=== PATIENT | female | born 1995 | race Caucasian/White ===

== ENCOUNTER 2016-12-05 12:39 | Emergency (ER) | payer OTHER ==
[2016-12-05 12:52] VITALS: BP 128/67
--- NOTE | 2016-12-05 13:57 | UC ---
Respiratory Complaint HPI - HPI Summary HPI Summary: 21 yo female ill for about 4 days with cough (productive of green phlegm), wheezing and diarrhea 3-4 episodes/day no n/v - History of Current Complaint Chief Complaint: UCRespiratory Stated Complaint: CHEST CONGESTION, COUGH Time Seen by Provider: 12/05/16 13:39 Hx Obtained From: Patient Hx Last Menstrual Period: 10/08/16-states having PCOS and menses are irreg. Onset/Duration: Gradual Onset, Lasting Days Severity Initially: Moderate Severity Currently: Mild Pain Intensity: 2 Pain Scale Used: 0-10 Numeric Character: Cough: Productive Aggravating Factors: Deep Breaths Associated Signs And Symptoms: Positive: Wheezing Related History: Similar Episode/Dx as: - bronchitis - Allergies/Home Medications Allergies/Adverse Reactions: Allergies Allergy/AdvReac Type Severity Reaction Status Date / Time No Known Allergies Allergy Verified 12/05/16 12:52 Home Medications: Home Medications ALPRAZolam TAB* [Xanax TAB*] 0.5 mg PO TID PRN 12/05/16 [History Confirmed 12/05] Xvkfvxw-Rxvedhraqbzrp-Cyraakhg [Excedrin Extra Strength] 2 tab PO PRN 12/05/16 [ History] Bupropion HCl [Wellbutrin Sr] 150 mg PO BID 12/05/16 [History Confirmed 12/05/16 ] PMH/Surg Hx/FS Hx/Imm Hx Previously Healthy: Yes Respiratory History: Bronchitis - Surgical History Surgical History: Yes Surgery Procedure, Year, and Place: RIGHT HAND SURGERY FOR NERVE REPAIR, [facility] x 2. T & A 04/21 - Family History Known Family History: Positive: Hypertension - Social History Alcohol Use: Weekly Substance Use Type: None Smoking Status (MU): Light Every Day Tobacco Smoker Type: Cigarettes Amount Used/How Often: 1/2 PACK A DAY Length of Time of Smoking/Using Tobacco: age 13 Have You Smoked in the Last Year: Yes - Immunization History Most Recent Tetanus Shot: 2008 Review of Systems Constitutional: Negative Skin: Negative Eyes: Negative ENT: Negative Respiratory: Cough Cardiovascular: Negative Gastrointestinal: Negative Genitourinary: Negative Motor: Negative Neurovascular: Negative Musculoskeletal: Negative Neurological: Negative Psychological: Negative Is Patient Immunocompromised?: No All Other Systems Reviewed And Are Negative: Yes Physical Exam Triage Information Reviewed: Yes Appearance: Well-Appearing, No Pain Distress, Well-Nourished Vital Signs: Initial Vital Signs Temp 97.2 F 12/05/16 12:45 Pulse 65 12/05/16 12:45 Resp 16 12/05/16 12:45 BP 128/67 12/05/16 12:45 Pulse Ox 100 12/05/16 12:45 Vital Signs Reviewed: Yes Eyes: Positive: Conjunctiva Clear ENT: Positive: Hearing grossly normal, TMs normal. Negative: Nasal congestion, Nasal drainage, Tonsillar swelling, Tonsillar exudate, Trismus, Muffled/hoarse voice Neck: Positive: Supple, Nontender, No Lymphadenopathy Respiratory: Positive: No respiratory distress, No accessory muscle use, Wheezing - with forced expiration Cardiovascular: Positive: RRR, No Murmur Musculoskeletal: Positive: ROM Intact, No Edema Neurological: Positive: Alert Skin Exam: Normal UC Diagnostic Evaluation - Laboratory O2 Sat by Pulse Oximetry: 100 - normal/not hypoxic Respiratory Course/Dx - Differential Dx/Diagnosis Provider Diagnoses: acute bronchitis with bronchospasm Discharge - Discharge Plan Condition: Stable Disposition: HOME Prescriptions: Albuterol HFA INHALER* [Ventolin HFA Inhaler*] 2 puff INH QID #1 mdi Azithromycin TAB* [Zithromax TAB*] 250 mg PO DAILY #6 tab Fluconazole 150 MG (NF) [Diflucan 150 mg (NF)] 150 mg PO ONCE #1 tab Prednisone [Deltasone] 40 mg PO DAILY #10 tab Patient Education Materials: Acute Bronchitis (ED) Forms: *Work Release Referrals: MALENA Wood [Primary Care Provider] - 4 Days (if not better) Additional Instructions: rest fluids recheck for new or worsening symptoms
== END 2016-12-05 13:59 | disposition home or self-care (01) ==
LOC: UCCORT 12:39
DX: J20.9 Acute bronchitis, unspecified (principal); F17.210 Nicotine dependence, cigarettes, uncomplicated
CPT/HCPCS: 99212; G0463

== ENCOUNTER 2017-02-13 08:51 | Emergency (ER) | payer OTHER ==
[2017-02-13 09:03] VITALS: BP 128/74
--- NOTE | 2017-02-13 10:03 | UC ---
Lower Extremity/Ankle HPI - HPI Summary HPI Summary: Pt c/o sudden onset of right foot pain, dorsal, lateral aspect. Denies injury or trauma. Pt reports she began high impact exercise 5 days ago and foot began to worsen in pain since beginning exercise. - History of Current Complaint Chief Complaint: UCLowerExtremity Stated Complaint: RT FOOT PAIN Time Seen by Provider: 02/13/17 09:15 Hx Obtained From: Patient Hx Last Menstrual Period: 01/24/17 ?: No Onset/Duration: Gradual Onset, Lasting Days, Still Present, Worse Since - onset Severity Initially: Mild Severity Currently: Moderate Pain Intensity: 7 Pain Scale Used: 0-10 Numeric Aggravating Factor(s): Standing, Ambulation Alleviating Factor(s): Rest Able to Bear Weight: Yes - minimum - Risk Factors Gout Risk Factors: Diabetes DVT Risk Factors: Negative Septic Arthritis Risk Factor: Negative - Allergies/Home Medications Allergies/Adverse Reactions: Allergies Allergy/AdvReac Type Severity Reaction Status Date / Time No Known Allergies Allergy Verified 02/13/17 09:03 Home Medications: Home Medications metFORMIN* [Glucophage 500 MG TAB *] 500 mg PO BID 02/13/17 [History Confirmed 02/13/17] PMH/Surg Hx/FS Hx/Imm Hx Previously Healthy: Yes - PCOS? Endocrine History: Diabetes - Surgical History Surgical History: Yes Surgery Procedure, Year, and Place: RIGHT HAND SURGERY FOR NERVE REPAIR, [facility] x 2. T & A 04/21 - Family History Known Family History: Positive: Hypertension - Social History Occupation: Employed Full-time Lives: With Family Alcohol Use: Rare Substance Use Type: None Smoking Status (MU): Former Smoker Type: Cigarettes Amount Used/How Often: 1/2 PACK A DAY Length of Time of Smoking/Using Tobacco: age 13 Have You Smoked in the Last Year: Yes - Immunization History Most Recent Tetanus Shot: 2008 Vaccination Up to Date: No Review of Systems Constitutional: Negative Skin: Negative Eyes: Negative ENT: Negative Respiratory: Negative Cardiovascular: Negative Gastrointestinal: Negative Genitourinary: Negative Motor: Decreased ROM - right foot Neurovascular: Negative Musculoskeletal: Arthralgia, Decreased ROM - right foot, Myalgia Neurological: Negative Psychological: Negative Is Patient Immunocompromised?: No All Other Systems Reviewed And Are Negative: Yes Physical Exam Triage Information Reviewed: Yes Appearance: Well-Appearing Vital Signs: Initial Vital Signs Temp 97.8 F 02/13/17 08:58 Pulse 68 02/13/17 08:58 Resp 16 02/13/17 08:58 BP 128/74 02/13/17 08:58 Pulse Ox 100 02/13/17 08:58 Vital Signs Reviewed: Yes Eye Exam: Normal ENT Exam: Normal Dental Exam: Normal Neck exam: Normal Respiratory Exam: Normal Cardiovascular Exam: Normal Musculoskeletal: Positive: Strength Limited @ - right foot, ROM Limited @, Other : - point tendereness mid right 5th metatarsal Neurological Exam: Other Psychological Exam: Normal Skin Exam: Normal Lower Extremity Course/Dx - Differential Dx/Diagnosis Differential Diagnosis/HQI/PQRI: Contusion, Fracture (Closed), Sprain, Strain Provider Diagnoses: tendonitis right foot. stress fracture? Discharge - Discharge Plan Condition: Stable Disposition: HOME Prescriptions: Ibuprofen TAB* [Motrin TAB* 800 MG] 800 mg PO Q8H PRN #21 tab PRN Reason: Pain Patient Education Materials: Tendinitis (ED), RICE Therapy (ED) Referrals: MALENA Wood [Primary Care Provider] - If Needed Enio Loya MD [Medical Doctor] - If Needed
== END 2017-02-13 09:44 | disposition home or self-care (01) ==
LOC: UCCORT 08:51
DX: M77.51 Other enthesopathy of right foot and ankle (principal); Z87.891 Personal history of nicotine dependence
CPT/HCPCS: 99213; G0463

== ENCOUNTER 2017-04-23 11:43 | Emergency (ER) | payer OTHER ==
--- NOTE | 2017-04-23 12:52 | UC ---
Complaint Female HPI - HPI Summary HPI Summary: Gastric bypass at [facility] 04/04/17 dx with UTI 5 days ago and has been on Bactrim that has resolved---this morning got right upper quadrant and right back back with vomiting after eating a cheese stick- - History Of Current Complaint Chief Complaint: UCAbdominalPain Stated Complaint: URINARY W/BACK PAIN Time Seen by Provider: 04/23/17 12:50 Hx Obtained From: Patient Hx Last Menstrual Period: now 04/23/17 ?: No Onset/Duration: Sudden Onset Timing: Constant Severity Initially: Severe Severity Currently: Severe Pain Intensity: 10 Pain Scale Used: 0-10 Numeric Character: Colicy Aggravating Factor(s): Nothing Alleviating Factor(s): Nothing Associated Signs And Symptoms: Positive: Back Pain, Nausea, Vomiting(# Of Episodes =) - 1 episode this morning - Allergies/Home Medications Allergies/Adverse Reactions: Allergies Allergy/AdvReac Type Severity Reaction Status Date / Time No Known Allergies Allergy Verified 04/23/17 13:16 Home Medications: Home Medications Aspirin/Acetaminophen/Caffeine [Excedrin Migraine Caplet] 1 each PO 04/23/17 [ History] Citalopram TAB* [CeleXA TAB*] 10 mg PO DAILY 04/23/17 [History Confirmed ] Fluconazole [Fluconazole 200 mg tab] 200 mg PO 04/23/17 [History] Omeprazole 20 mg PO DAILY 04/23/17 [History Confirmed 04/23/17] Ondansetron ODT TAB* [Zofran 4 MG Odt TAB*] 8 mg PO Q8H PRN 04/23/17 [History Confirmed 04/23/17] Sulfamethox/Trimethoprim DS* [Bactrim DS 800/160 TAB*] 1 tab PO BID 04/23/17 [ History Confirmed 04/23/17] buPROPion HCl [Wellbutrin Sr] 100 mg PO BID 04/23/17 [History Confirmed 04/23/17 ] PMH/Surg Hx/FS Hx/Imm Hx Previously Healthy: No GI/ History: Gastroesophageal Reflux Psychological History: Depression - Surgical History Surgical History: Yes Surgery Procedure, Year, and Place: RIGHT HAND SURGERY FOR NERVE REPAIR, [facility] x 2. T & A 04/21 - Family History Known Family History: Positive: Hypertension - Social History Occupation: Employed Full-time Lives: Alone Alcohol Use: Rare Substance Use Type: None Smoking Status (MU): Former Smoker Type: Cigarettes Amount Used/How Often: 1/2 PACK A DAY Length of Time of Smoking/Using Tobacco: age 13 Have You Smoked in the Last Year: Yes - Immunization History Most Recent Tetanus Shot: 2008 Vaccination Up to Date: No Review of Systems Constitutional: Negative Skin: Negative Eyes: Negative ENT: Negative Respiratory: Negative Cardiovascular: Negative Gastrointestinal: Abdominal Pain - ruq, Vomiting, Nausea Genitourinary: Negative Motor: Negative Neurovascular: Negative Musculoskeletal: Negative Neurological: Negative Psychological: Negative Is Patient Immunocompromised?: No All Other Systems Reviewed And Are Negative: Yes Physical Exam Triage Information Reviewed: Yes Appearance: Well-Nourished, Ill-Appearing, Pain Distress Vital Signs Reviewed: Yes Eye Exam: Normal Eyes: Positive: Conjunctiva Clear ENT Exam: Normal ENT: Positive: Normal ENT inspection, Hearing grossly normal. Negative: Nasal congestion, Nasal drainage, Trismus, Hoarse voice, Dental tenderness, Sinus tenderness Dental Exam: Normal Neck exam: Normal Neck: Positive: Supple, Nontender Respiratory Exam: Normal Respiratory: Positive: Chest non-tender, No respiratory distress, No accessory muscle use Cardiovascular Exam: Normal Cardiovascular: Positive: RRR, Pulses Normal, Brisk Capillary Refill Abdominal Exam: Normal Abdomen Description: Positive: Soft, Other: - RUQ pain. Negative: No Organomegaly, CVA Tenderness (R), CVA Tenderness (L), Distended Bowel Sounds: Positive: Present Musculoskeletal Exam: Normal Musculoskeletal: Positive: Strength Intact, ROM Intact, No Edema Neurological Exam: Normal Neurological: Positive: Alert, Muscle Tone Normal Psychological Exam: Normal Skin Exam: Normal Diagnostics - Laboratory Diagnostic Studies Completed/Ordered: ua--+ketones and Bili--no leukoesterace or nit. Complaint Female Dx - Course Course Of Treatment: npo to [facility] with ex-boyfriend driving for evaluation of abdomen pain - Differential Dx/Diagnosis Provider Diagnoses: Acute abdomen pain s/p [id number] Discharge - Discharge Plan Condition: Fair Disposition: OTHER Discharge Disposition Comment: to [facility] for evaluation of abdomen pain Patient Education Materials: Acute Abdominal Pain (ED) Referrals: MALENA Wood [Primary Care Provider] - Additional Instructions: We are discharging you from the urgent care to go directly to the hospital for further evaluation of abdomen pain and vomiting---
[2017-04-23 13:27] VITALS: BP 124/66
== END 2017-04-23 13:50 ==
LOC: UCCORT 11:43
DX: R10.11 Right upper quadrant pain (principal); Z98.84 Bariatric surgery status; Z87.891 Personal history of nicotine dependence; F32.9 Major depressive disorder, single episode, unspecified; K21.9 Gastro-esophageal reflux disease without esophagitis
CPT/HCPCS: 81003; 99212; G0463

== ENCOUNTER 2018-09-15 09:01 | Day surgery (SDC) | payer OTHER ==
--- NOTE | 2018-09-06 17:01 | HP ---
PREOPERATIVE HISTORY AND PHYSICAL: DATE OF SURGERY/ADMISSION: 09/15/18 [facility] DATE OF OFFICE VISIT/ENCOUNTER: 09/06/18 ATTENDING SURGEON: Yuliana Beauchamp MD.* (DICTATED BY UTE JIMENEZ) PROCEDURE: Right hand median nerve exploration, nerve wrap, scar lengthening. HISTORY OF PRESENT ILLNESS: This is a 22-year-old female who has history of injury to her right hand back in 2013, for which she was treated by Dr. Beauchamp. At that time, she sustained a laceration to the palm of her hand, around the thenar eminence, and ended up developing a Dupuytren's contracture that involved her thumb. She had surgery to remove the Dupuytren's contracture and to disentangle a digital nerve that was found to be intact. The patient reports that since the initial injury she has had trouble with numbness and tingling in her hand, primarily effecting the thumb, index, and middle fingers. She does not feel numbness in the pinky or ring finger. She has noticed over the time that although she healed well from the surgery, she has had persistent numbness and also has noticed some strength deficit in the hand. She reports that the weather and using her hand make the symptoms worse. She had a nerve conduction study more recently, ordered by Dr. 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 Dr. Beauchamp is recommending surgical intervention at this time in the form of a median nerve exploration, nerve wrapping, and scar lengthening. The patient has consented to proceed. Of note , the patient had a gastric bypass in 2019 by a surgeon up in [place]. Since then she has lost over 150 pounds, which was actually more than she was intending to loose. She meets with another doctor in order to help her with nutrition. PAST MEDICAL HISTORY: Anxiety/depression. PAST SURGICAL HISTORY: 1. Laparoscopic gastric bypass. 2. Right hand surgery x2. 3. Tonsillectomy and adenoidectomy. 4. Dwarf teeth extraction. 5. Kidney stones. CURRENT MEDICATIONS: 1. Amitriptyline HCL 50 mg, 1 tab daily. 2. Biotin. 3. Multi Complete vitamin. 4. Phenergan. 5. Probiotic. 6. NuvaRing. ALLERGIES: No known drug allergies, but the patient avoids NSAIDs secondary to her gastric bypass. FAMILY MEDICAL HISTORY: Diabetes, cancer, stroke, and heart disease. SOCIAL HISTORY: The patient is employed at [employer] in [place]. She is a former smoker. She quit in 2013. Prior to that she smoked for approximately 4 years, half a pack per day. She denies recreational drug use. She drinks alcohol on occasion. REVIEW OF SYSTEMS: Negative for general, cephalic, cardiovascular, respiratory. GI is positive for occasional nausea. Negative , other musculoskeletal, integumentary, endocrine, neurologic, and hematologic symptoms. Infectious disease negative for MRSA, hepatitis C, HIV. PHYSICAL EXAMINATION GENERAL: A well-developed, well-nourished 22-year-old female, in no acute distress. VITAL SIGNS: Height 5 feet 7 inches, weight 124 pounds, pulse rate 70, blood pressure 100/56. HEENT: Normocephalic, atraumatic. Pupils are equal, round, and reactive to light and accommodation. Extraocular movements are intact. NECK: Supple. No palpable lymph nodes. Throat is clear. PULMONARY: Lungs are clear to auscultation bilaterally. No wheezes, rales or rhonchi. CARDIOVASCULAR: Regular rate and rhythm. S1 and S2. No murmurs, rubs or gallops. No edema. ABDOMEN: Positive bowel sounds, soft, nontender. NEUROLOGICAL: Alert and oriented x3. Cranial nerves II through XII are intact. MUSCULOSKELETAL: On exam of her right hand, she has some loss of passive abduction of her thumb due to the scar and thenar wasting. She has decreased sensation in her thumb, ulnar border of her index finger, and radial border of her middle finger. 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 PLAN: The patient is scheduled to undergo a right hand median nerve exploration , nerve wrap, scar lengthening with Dr. Beauchamp on 09/15/18. She will return to the office 10 days postop for followup and suture removal. A prescription for Tramadol was e-scribed to the patient's pharmacy for postoperative pain management. UTE JIMENEZ [id number]/[facility] #: [id number] [facility] SETON HOSPITALLatosha
[~2018-09-15 09:01] MED LIST: Buffered Lidocaine 1% SYRIN* 1 ML/SYRINGE INTRADERM ONE; Lactated Ringers 1000 ML Bag* 1,000 ML IV SCH; Sodium Citrate/Citric Acid* 15 ML UDC PO ONE
[2018-09-15] MEDS ORDERED: Sodium Citrate/Citric Acid* 15 ML UDC ONE (09:36)
[2018-09-15] MEDS ORDERED: Naloxone* 0.4 MG/ML 1 ML VIAL IV PRN (10:05)
[2018-09-15] MEDS ORDERED: ceFAZolin 2 GM in NS PREMIX(*) 2 GM/100 ML BAG IVPB ONE (10:16)
[2018-09-15] MEDS ORDERED: fentaNYL* 50 MCG/ML 2 ML VIAL (100 MCG VIAL) ONE ×3 (10:21→13:21)
[2018-09-15] MEDS ORDERED: Lidocaine 2% PF * 5 ML VIAL ONE (10:21)
[2018-09-15] MEDS ORDERED: Propofol* 10 MG/ML 20 ML BTL ONE (10:21)
[2018-09-15] MEDS ORDERED: Lidocaine 1% INJ* 10 MG/ML 30 ML SDV ONE (10:26)
[2018-09-15] MEDS ORDERED: Ondansetron INJ* 2 MG/ML VIAL ONE (12:32)
[2018-09-15] MEDS ORDERED: Dexamethasone IV* 4 MG/ML 1 ML (4 MG) ONE (12:32)
[2018-09-15] MEDS ORDERED: HYDROcodone/ACETAMIN 5-325 MG* 1 TAB ONE (12:57)
[2018-09-15] MEDS: fentaNYL* 50 MCG/ML 2 ML VIAL (100 MCG VIAL) IV PRN ×3 (13:04→13:27)
--- NOTE | 2018-09-15 13:47 | OP ---
DATE OF OPERATION: 09/15/18 [facility] DATE OF : 89 SURGEON: Yuliana Beauchamp MD DATA CONVERSION OPERATOR: UTE Gaitan ANESTHESIA: General. PRE-OP DIAGNOSIS: Neuritis and scarring of the nerve after nerve repair of the right median nerve. POST-OP DIAGNOSIS: Neuritis and scarring of the nerve after nerve repair of the right median nerve. OPERATIVE PROCEDURE: Right median nerve exploration, neurolysis and nerve wrapping as well as scar lengthening. ESTIMATED BLOOD LOSS: Zero. TOURNIQUET TIME: An hour and a half. INDICATION FOR PROCEDURE: Iqra is a 22-year-old female who suffered a laceration of the right median nerve. She has had 2 procedures for the nerve including a nerve repair and then a neurolysis. She has persistent numbness, although less than initially in the right thumb index and middle fingers, who presents for median nerve decompression, neurolysis, wrapping and she also has some scarring that limits her thumb range of motion, so presents for a scar lengthening. DESCRIPTION OF PROCEDURE: The patient was brought to the operating room and was given a general anesthetic and placed in the supine position on the operating table with a tourniquet around her right upper arm. The skin of her right upper extremity was prepped and draped in the usual sterile fashion. The previous scar was incised in the central aspect of her palm and this incision was carried proximally in zig-zag fashion across the wrist creases. The median nerve in the distal forearm was normal and the carpal tunnel appeared normal. Just at the branching of the nerve into all of the common digital nerves, there was a markedly thickened scar. This was carefully dissected off each nerve branch. All of the common digital nerve branches were intact. The area where the common digital nerve to the thumb was repaired, had fairly significant neuroma. The motor branch appeared intact. After this was all carefully dissected out, the common digital branch to the index finger and middle fingers was wrapped with an AxoGen nerve wrap using 8-0 nylon suture, each was wrapped over a length of 2 cm and a 3.5 mm wrap was used. Next, a 4 x 15 mm wrap was cut slightly in its length and then opened and used as a nerve wrap for the repair area of the thumb common digital nerve. Also, 8-0 nylon suture was used for this. After the decompression neurolysis and nerve wrapping, the nerve looked to be in very good condition. The scar area on the thumb was lengthened with a 2 arm Z-plasty with 60-degree angles over 2 cm length, this allowed the thumb to fully abduct. The skin flaps were elevated and then the flaps were transposed and closed with 4-0 nylon suture. The remainder of the wound after irrigating was closed with 4-0 nylon suture. The wound was dressed with Xeroform, 4x4, Webril and an Duane wrap. The patient tolerated the procedure well and was brought to the recovery room in good condition. [id number]/[facility] #: [id number] MTDLatosha
[2018-09-15 14:39] VITALS: BP 107/63
== END 2018-09-15 14:33 | disposition home or self-care (01) ==
LOC: OREAST 09:01
PROVIDERS: ATTEND Orthopaedic Surgery
DX: G56.11 Other lesions of median nerve, right upper limb (principal); L90.5 Scar conditions and fibrosis of skin; Z87.891 Personal history of nicotine dependence; K21.9 Gastro-esophageal reflux disease without esophagitis; F41.8 Other specified anxiety disorders; Z87.442 Personal history of urinary calculi
CPT/HCPCS: 81025; 88304; A9270-GY; C1763; C1776; J0690; J1100; J2405; J2704; J3010